=== PATIENT | male | born 1980 | race Caucasian/White ===

== ENCOUNTER 2016-09-22 10:00 | Emergency (ER) | payer BC | END 2016-09-22 14:50 | disposition home or self-care (01) | LOC: ER 10:00 | DX: K60.0 Acute anal fissure (principal); S39.012A Strain of muscle, fascia and tendon of lower back, initial encounter; R39.15 Urgency of urination | CPT/HCPCS: 36415; 72100; 80053; 81001; 82274; 85025; 87088 ==